=== PATIENT | female | born 1995 | race Caucasian/White ===

== ENCOUNTER 2023-12-14 16:31 | Emergency (ER) | payer MEDICARE, MEDICAID ==
[2023-12-14] MEDS: Ondansetron 4 MG Tab.DIS PO ONE (18:00)
[2023-12-14 18:07] LABS: BASOPHILS PERCENT AUTO 0.5 % (0.0-1.0); EOSINOPHILS PERCENT AUTO 0.5 % (1.0-3.0); HEMATOCRIT 41.7 % (37.0-47.0); HEMOGLOBIN 13.6 g/dL (12.0-16.0); LYMPHOCYTES PERCENT AUTO 24.8 % (20.5-50.1); MEAN CORPUSCULAR HGB CONC 32.6 g/dL (33.0-35.0); MEAN CORPUSCULAR VOLUME 92.1 fL (80-100); MONOCYTES PERCENT AUTO 8.3 % (2-8); NEUTROPHILS PERCENT AUTO 65.9 % (42.2-75.2); PLATELET COUNT,PLT 268 10^3/uL (150-450); RED BLOOD CELL COUNT 4.53 10^6/uL (4.2-5.4); WHITE BLOOD CELL COUNT,WBC 8.4 10^3/uL (5.0-10.0)
[2023-12-14 18:18] LABS: APPEARANCE,URINE CLEAR (CLEAR); BILIRUBIN,URINE NEGATIVE (NEGATIVE); COLOR,URINE YELLOW (YELLOW); GLUCOSE,URINE NEGATIVE (NEGATIVE); KETONES,URINE NEGATIVE (NEGATIVE); LEUKOCYTE ESTERASE,URINE NEGATIVE (NEGATIVE); NITRITE,URINE NEGATIVE (NEGATIVE); OCCULT BLOOD,URINE NEGATIVE (NEGATIVE); PH,URINE 7.5 (5.0-9.0); PROTEIN,URINE NEGATIVE (NEGATIVE)
[2023-12-14 18:27] LABS: A/G RATIO 0.9; ALBUMIN 3.5 g/dL (3.4-5.0); ANION GAP 12.5 mEq/L (7-13); BILIRUBIN TOTAL 0.2 mg/dL (0.2-1.0); BUN/CREATININE RATIO 11.4 (No establ ref range); CALCIUM 9.2 mg/dL (8.5-10.1); CREATININE 0.79 mg/dL (0.55-1.02); EST CRCL DRUG DOSING (CG) 92.37 mL/min; MAGNESIUM 2.1 mg/dL (1.8-2.4); POTASSIUM,K 4.5 mmol/L (3.5-5.1); PROTEIN TOTAL,TP 7.5 g/dL (6.4-8.2)
[2023-12-14 18:33] LABS: LACTIC ACID 1.6 mmol/L (0.4-2.0)
[2023-12-14] MEDS ORDERED: Ibuprofen 400 MG Tab PO ONE (19:41)
== END 2023-12-14 20:05 | disposition home or self-care (01) ==
LOC: DL.ED 16:31
DX: U07.1 COVID-19 (principal); K21.9 Gastro-esophageal reflux disease without esophagitis; Z79.899 Other long term (current) drug therapy; Z88.8 Allergy status to other drugs, medicaments and biological substances; Z88.0 Allergy status to penicillin
CPT/HCPCS: 36415; 71046; 80053; 81003; 81025; 82150; 83605; 83690; 83735; 85025; 87804; 99283; 99284; A9270-GY; U0002

== ENCOUNTER 2023-12-27 23:30 | Emergency (ER) | payer MEDICARE, MEDICAID ==
[2023-12-27 23:51] LABS: BASOPHILS PERCENT AUTO 0.2 % (0.0-1.0); EOSINOPHILS PERCENT AUTO 0.7 % (1.0-3.0); HEMATOCRIT 39.2 % (37.0-47.0); HEMOGLOBIN 12.9 g/dL (12.0-16.0); LYMPHOCYTES PERCENT AUTO 15.7 % (20.5-50.1); MEAN CORPUSCULAR HEMOGLOBIN 30.1 pg (27.0-34.0); MEAN CORPUSCULAR HGB CONC 32.9 g/dL (33.0-35.0); MEAN CORPUSCULAR VOLUME 91.6 fL (80-100); MONOCYTES PERCENT AUTO 4.5 % (2-8); NEUTROPHILS PERCENT AUTO 78.9 % (42.2-75.2); PLATELET COUNT,PLT 221 10^3/uL (150-450); RED BLOOD CELL COUNT 4.28 10^6/uL (4.2-5.4)
[2023-12-28 00:03] LABS: HCG QUALITATIVE,SERUM NEGATIVE (NEGATIVE)
[2023-12-28 00:08] LABS: ALANINE AMINOTRANSFERASE,ALT 19 U/L (14-59); ALBUMIN 3.3 g/dL (3.4-5.0); ALKALINE PHOSPHATASE 80 U/L (46-116); ANION GAP 11.3 mEq/L (7-13); ASPARTATE AMNIOTRANSFERASE,AST 9 U/L (15-37); BILIRUBIN TOTAL 0.2 mg/dL (0.2-1.0); BLOOD UREA NITROGEN,BUN 10 mg/dL (7-18); BUN/CREATININE RATIO 11.8 (No establ ref range); CALCIUM 8.8 mg/dL (8.5-10.1); CARBON DIOXIDE,CO2 28 mmol/L (21-32); CHLORIDE,CL 103 mmol/L (98-107); CREATININE 0.85 mg/dL (0.55-1.02); EST CRCL DRUG DOSING (CG) 85.85 mL/min; GLUCOSE RANDOM 94 mg/dL (70-99); LIPASE 29 U/L (16-77); POTASSIUM,K 3.3 mmol/L (3.5-5.1); PROTEIN TOTAL,TP 6.6 g/dL (6.4-8.2); SODIUM,NA 139 mmol/L (136-145)
[2023-12-28] MEDS: Ondansetron 4 MG/2 ML SDV IVPUSH ONE (00:13)
[2023-12-28] MEDS: Sodium Chloride 0.9% 1,000 ML IV ONE ×2 (00:14→07:11)
[2023-12-28 00:20] LABS: ESTIMATED GFR 96 mL/min (>=60)
[2023-12-28] MEDS: Iopamidol 612 MG/ML 100 ML Bottle IVPUSH ONE (00:30)
[2023-12-28] MEDS: Ketorolac 30 MG/ML SDV IVPUSH ONE (01:06)
[2023-12-28 01:15] LABS: APPEARANCE,URINE CLEAR (CLEAR); BILIRUBIN,URINE NEGATIVE (NEGATIVE); COLOR,URINE YELLOW (YELLOW); GLUCOSE,URINE NEGATIVE (NEGATIVE); KETONES,URINE NEGATIVE (NEGATIVE); LEUKOCYTE ESTERASE,URINE NEGATIVE (NEGATIVE); NITRITE,URINE NEGATIVE (NEGATIVE); OCCULT BLOOD,URINE NEGATIVE (NEGATIVE); PH,URINE 5.5 (5.0-9.0); PROTEIN,URINE NEGATIVE (NEGATIVE)
[2023-12-28 01:20] LABS: AMPHETAMINES,URINE NEGATIVE (NEGATIVE); BARBITURATES,URINE NEGATIVE (NEGATIVE); BENZODIAZEPINE,URINE POSITIVE (NEGATIVE); MDMA (ECSTASY), URINE NEGATIVE (NEGATIVE); METHADONE,URINE NEGATIVE (NEGATIVE); METHAMPHETAMINES,URINE NEGATIVE (NEGATIVE); OPIATES,URINE NEGATIVE (NEGATIVE); OXYCODONE,URINE NEGATIVE (NEGATIVE); PHENCYCLIDINE,URINE NEGATIVE (NEGATIVE); TCA,URINE POSITIVE (NEGATIVE)
[2023-12-28] MEDS: Morphine 4 MG/ML Syringe IVPUSH ONE (03:28)
[2023-12-28] MEDS: Morphine 2 MG/ML SYRINGE IVPUSH ONE (07:37)
[2023-12-28] MEDS: Potassium Chloride 20 MEQ in Premix Bag 1 BAG IV ONE (07:43)
[2023-12-28] MEDS: cefTRIAXone 500 MG, Lidocaine 1% 1 ML IM ONE (11:28)
[2023-12-28] MEDS: Doxycycline Monohydrate 100 MG Cap PO ONE (11:41)
[2023-12-28] MEDS: Take Home: Doxycycline 100 MG Cap, 4 Cap Pack PO ONE (11:45)
[2023-12-31 12:47] LABS: C.TRACHOMATIS BY TMA Negative (Negative); M GENITALIUM Negative (Negative); M GENITALIUM SOURCE Urine; N.GONORRHOEAE BY TMA Negative (Negative); SOURCE Urine
== END 2023-12-28 11:49 | disposition home or self-care (01) ==
LOC: DL.ED 23:30
DX: N73.0 Acute parametritis and pelvic cellulitis (principal); K21.9 Gastro-esophageal reflux disease without esophagitis; Z79.899 Other long term (current) drug therapy; Z88.0 Allergy status to penicillin; Z88.8 Allergy status to other drugs, medicaments and biological substances
CPT/HCPCS: 36415; 74177; 76856; 80053; 80305; 81003; 83605; 83690; 84703; 85025; 87210; 87491; 87563; 87591; 87804; 96361; 96365; 96366; 96372; 96375; 96376; 99284; 99285; A9270; J0696; J1885; J2270; J2405; J3480; J7030; Q9967; J3490

== ENCOUNTER 2023-12-28 15:24 | Emergency (ER) | payer MEDICARE, MEDICAID | END 2023-12-28 16:20 | disposition left against medical advice (07) | LOC: DL.ED 15:24 | DX: Z53.21 Procedure and treatment not carried out due to patient leaving prior to being seen by health care provider (principal) ==

== ENCOUNTER 2024-01-12 06:48 | Day surgery (SDC) | payer MEDICAID, MEDICARE ==
[~2024-01-12 06:48] MED LIST: Midazolam 1 MG/ML 2 ML SDV ONE; fentaNYL 100 MCG/2 ML SDV ONE
[2024-01-12] MEDS ORDERED: fentaNYL 100 MCG/2 ML SDV IV ONE (06:49)
[2024-01-12] MEDS ORDERED: Midazolam 1 MG/ML 2 ML SDV IV ONE (06:49)
[2024-01-12] MEDS: Dextrose 5%-0.45% NaCl 1,000 ML IV SCH (07:31)
[2024-01-12] MEDS: fentaNYL 100 MCG/2 ML SDV IV ONE ×2 (08:01→08:02)
[2024-01-12] MEDS: Midazolam 1 MG/ML 2 ML SDV IV ONE ×2 (08:02→08:03)
== END 2024-01-12 09:54 | disposition home or self-care (01) ==
LOC: DL.ENDO 06:48
PROVIDERS: ATTEND Internal Medicine Gastroenterology
DX: R10.13 Epigastric pain (principal); K31.89 Other diseases of stomach and duodenum; J45.30 Mild persistent asthma, uncomplicated; K21.9 Gastro-esophageal reflux disease without esophagitis; F41.9 Anxiety disorder, unspecified
CPT/HCPCS: 43239; 87077; 88305; 88313; J2250; J3010; J7799

== ENCOUNTER 2024-06-06 22:19 | Emergency (ER) | payer MEDICARE, MEDICAID | END 2024-06-06 23:04 | disposition left against medical advice (07) | LOC: DL.ED 22:19 | DX: Z53.21 Procedure and treatment not carried out due to patient leaving prior to being seen by health care provider (principal) ==

== ENCOUNTER 2024-08-04 10:35 | Emergency (ER) | payer MEDICARE, MEDICAID ==
[2024-08-04] MEDS: Dexamethasone 4 MG/ML SDV IM ONE (11:07)
== END 2024-08-04 11:17 | disposition home or self-care (01) ==
LOC: DL.ED 10:35
DX: M54.16 Radiculopathy, lumbar region (principal); Z88.8 Allergy status to other drugs, medicaments and biological substances; Z88.0 Allergy status to penicillin; Z79.899 Other long term (current) drug therapy; Z86.16 Personal history of COVID-19
CPT/HCPCS: 96372; 99282; 99283; J1100

== ENCOUNTER 2024-10-29 17:31 | Emergency (ER) | payer MEDICARE, MEDICAID | END 2024-10-29 18:00 | disposition home or self-care (01) | LOC: DL.ED 17:31 | DX: R11.2 Nausea with vomiting, unspecified (principal); R19.7 Diarrhea, unspecified; K21.9 Gastro-esophageal reflux disease without esophagitis; Z88.0 Allergy status to penicillin; Z88.8 Allergy status to other drugs, medicaments and biological substances; Z79.899 Other long term (current) drug therapy; Z86.16 Personal history of COVID-19 | CPT/HCPCS: 96372; 99283; 99284; A9270-GY; J2765 ==

== ENCOUNTER 2024-11-01 14:08 | Emergency (ER) | payer MEDICARE, MEDICAID ==
[2024-11-01 15:10] LABS: BASOPHILS PERCENT AUTO 0.4 % (0.0-1.0); EOSINOPHILS PERCENT AUTO 1.1 % (1.0-3.0); LYMPHOCYTES PERCENT AUTO 26.2 % (20.5-50.1); MONOCYTES PERCENT AUTO 5.7 % (2-8); NEUTROPHILS PERCENT AUTO 66.6 % (42.2-75.2); PLATELET COUNT,PLT 258 10^3/uL (150-450); RED BLOOD CELL COUNT 4.44 10^6/uL (4.2-5.4); WHITE BLOOD CELL COUNT,WBC 7.5 10^3/uL (5.0-10.0)
[2024-11-01 15:12] LABS: APPEARANCE,URINE CLEAR (CLEAR); GLUCOSE,URINE NEGATIVE (NEGATIVE); OCCULT BLOOD,URINE NEGATIVE (NEGATIVE)
[2024-11-01 15:21] LABS: EPITHELIAL CELLS,URINE MODERATE /HPF (NOT SEEN)
[2024-11-01 15:29] LABS: A/G RATIO 1.0; ALANINE AMINOTRANSFERASE,ALT 18.0 U/L (14-59); ASPARTATE AMNIOTRANSFERASE,AST 10.0 U/L (15-37); BILIRUBIN TOTAL 0.3 mg/dL (0.2-1.0); BLOOD UREA NITROGEN,BUN 9.0 mg/dL (7-18); CARBON DIOXIDE,CO2 26.0 mmol/L (21-32); CHLORIDE,CL 105.0 mmol/L (98-107); CREATININE 0.62 mg/dL (0.55-1.02); EST CRCL DRUG DOSING (CG) 111.75 mL/min; GLUCOSE RANDOM 94.0 mg/dL (70-99); POTASSIUM,K 3.8 mmol/L (3.5-5.1); PROTEIN TOTAL,TP 7.3 g/dL (6.4-8.2); SODIUM,NA 141.0 mmol/L (136-145)
[2024-11-01 15:30] LABS: ESTIMATED GFR 124.0 mL/min (>=60)
[2024-11-01 15:41] LABS: INR 0.9 (0.9-1.2); PTT,PARTIAL THROMBOPLSTIN TIME 21.9 SEC (22.0-34.0)
== END 2024-11-01 15:51 | disposition home or self-care (01) ==
LOC: DL.ED 14:08
DX: R19.7 Diarrhea, unspecified (principal); K21.9 Gastro-esophageal reflux disease without esophagitis; Z88.0 Allergy status to penicillin; Z88.8 Allergy status to other drugs, medicaments and biological substances; Z79.899 Other long term (current) drug therapy; Z79.51 Long term (current) use of inhaled steroids; Z86.16 Personal history of COVID-19
CPT/HCPCS: 36415; 80053; 81001; 81025; 82272; 85025; 85610; 85730; 86140; 87045; 87046; 87086; 87328; 87329; 87899; 99284